=== PATIENT | male | born 1985 | race Two or more races ===

== ENCOUNTER 2024-02-10 19:55 | Emergency (ER) | payer MEDICAID, OTHER ==
[~2024-02-10] VITALS: Ht 180.3 cm; Wt 97.1 kg
[2024-02-10 20:15] VITALS: BP 131/98; PULSE 68; RESP 18; TEMP 97.7; O2SAT 94
[2024-02-10 21:24] LABS: COVID19 ANTIGEN SOFIA FIA NEGATIVE (NEGATIVE); Rapid Influenza A Negative (Negative); Rapid Influenza B Negative (Negative); Rapid Strep A Screen-Throat Negative
[2024-02-10] MEDS ORDERED: AUG875T PO (21:55)
[2024-02-10] MEDS ORDERED: METH4PAK PO (21:55)
== END 2024-02-10 22:05 | disposition home or self-care (01) ==
LOC: ER 19:55
DX: J06.9 Acute upper respiratory infection, unspecified (principal); Z20.822 Contact with and (suspected) exposure to COVID-19
CPT/HCPCS: 36415; 87070; 87426; 87804; 87880